=== PATIENT | female | born 1960 | race Hispanic/Latino ===

== ENCOUNTER 2017-09-24 06:50 | Day surgery (SDC) | payer MEDICARE ==
[2014-11-01 09:47] VITALS: BMI 30.1
[2017-09-24] MEDS ORDERED: Propofol 10 mg/ml Inj (20 ML) ONE ×2 (08:07→08:41)
[2017-09-24] MEDS ORDERED: Midazolam 2 MG/2 ML VIAL ONE (08:18)
[2017-09-24] MEDS ORDERED: Sodium Chloride 0.9% 1,000 ML IV SCH (09:15)
[2017-09-24 12:50] VITALS: BP 121/73; PULSE 70; RESP 15; TEMP 97; O2SAT 97
== END 2017-09-24 11:30 | disposition home or self-care (01) ==
LOC: ENDO 06:50
PROVIDERS: ATTEND Internal Medicine Gastroenterology
DX: Z12.11 Encounter for screening for malignant neoplasm of colon (principal); D12.4 Benign neoplasm of descending colon; D12.3 Benign neoplasm of transverse colon; D12.2 Benign neoplasm of ascending colon; D12.5 Benign neoplasm of sigmoid colon; K57.30 Diverticulosis of large intestine without perforation or abscess without bleeding; K64.2 Third degree hemorrhoids; K64.4 Residual hemorrhoidal skin tags; G47.00 Insomnia, unspecified; F41.9 Anxiety disorder, unspecified; G43.909 Migraine, unspecified, not intractable, without status migrainosus; Z85.89 Personal history of malignant neoplasm of other organs and systems; Z80.42 Family history of malignant neoplasm of prostate; Z80.52 Family history of malignant neoplasm of bladder; F17.210 Nicotine dependence, cigarettes, uncomplicated; Z86.010 Personal history of colon polyps
CPT/HCPCS: 45380; 88305; J2001; J2250; J2704; J7030

== ENCOUNTER 2018-03-28 15:02 | Outpatient (CLI) | payer MEDICARE | END 2018-03-28 15:03 | disposition home or self-care (01) | LOC: RAD 15:02 ==

== ENCOUNTER 2018-08-07 09:55 | Emergency (ER) | payer MEDICARE ==
[2018-08-07 09:55] VITALS: BMI 28.8
--- NOTE | 2018-08-07 10:39 | ED PDOC ---
Arrival/HPI - General Historian: Patient - History of Present Illness Narrative History of Present Illness (Text): 08/07/18 10:34 Pt is a 57 yo female with a PMH of right rotator cuff injury, hyperlipidemia, skin cancer scalp/lip who presents to the ED after a mechanical fall. Pt was carrying her grandson on the stair when she slipped and had a mechanical fall. Pt inverted her right ankle at that time. Pt was unable to bear weight on her right ankle at the time and she is unable to in the ED. Pt is unable to take 4 steps. Foot instantly began to swell. Denies hearing a pop/cracking sound, denies LOC, hitting her head, or visual changes. Time/Duration: Prior to Arrival Symptom Onset: Sudden Symptom Course: Unchanged Quality: Stabbing Severity Level: 9 Activities at Onset: Rest Context: Sitting <Jason Gee - Last Filed: 08/07/18 15:01> <Sang Linn - Last Filed: 08/07/18 15:47> - General Chief Complaint: Lower Extremity Problem/Injury Past Medical History - Past History Past History: No Previous - Infectious Disease Hx of Infectious Diseases: None - Tetanus Immunization Tetanus Immunization: Unknown - Reproductive Menopause: No - Cardiac Hx Cardiac Disorders: No Hx Pacemaker: No - Pulmonary Hx Respiratory Disorders: No - Neurological Hx Neurological Disorder: Yes Hx Migraine: Yes Hx Paralysis: No - HEENT Hx HEENT Disorder: No - Renal Hx Renal Disorder: No - Endocrine/Metabolic Hx Endocrine Disorders: No - Hematological/Oncological Hx Blood Disorders: Yes Hx Blood Transfusions: No Hx Blood Transfusion Reaction: No Hx Cancer: Yes (SKIN-MOLES ON HEAD, CHEST AND SHOULDER REMOVED) - Integumentary Hx Dermatological Disorder: Yes Other/Comment: HX:" CANCER OF THE SKIN-MOLES REMOVED FROM HEAD, CHEST AND SHOULDER.' - Musculoskeletal/Rheumatological Hx Musculoskeletal Disorders: Yes Hx Falls: No Other/Comment: HX:RIGHT SHOULDER CUFF TEAR - Gastrointestinal Hx Gastrointestinal Disorders: Yes Hx Hemorrhoids: Yes - Genitourinary/Gynecological Hx Genitourinary Disorders: No - Psychiatric Hx Emotional Abuse: No Hx Physical Abuse: No Hx Substance Use: No - Surgical History Hx Musculoskeletal Surgery: Yes (RIGHT ROTATOR CUFF REPAIR) Other/Comment: HX: "SKIN CANCER-MOLES REMOVED FROM HEAD,SHOULDER, CHEST." - Anesthesia Hx Anesthesia: Yes Hx Anesthesia Reactions: Yes (NAUSEA/VOMITING- PRONE TO MOTION SICKNESS) Hx Malignant Hyperthermia: No - Suicidal Assessment Feels Threatened In Home Enviroment: No <Francine Geene Gurdeep - Last Filed: 08/07/18 15:01> Family/Social History Family/Social History: Hypertension, CAD/[place] Smoking Status: Current Some Days Smoker Hx Alcohol Use: Yes (SOCIAL) Hx Substance Use: No Hx Substance Use Treatment: No <GerardJason Gurdeep - Last Filed: 08/07/18 15:01> Allergies/Home Meds <GerardJason Gurdeep - Last Filed: 08/07/18 15:01> <Sang Linn - Last Filed: 08/07/18 15:47> Allergies/Adverse Reactions: Allergies No Known Allergies Allergy (Verified 09/21/17 10:58) Home Medications: Home Meds Medication Instructions Recorded Confirmed Gabapentin [Neurontin] 300 mg PO TID 06/09/17 11/26/17 Diazepam [Valium] 10 mg PO PRN PRN 09/21/17 08/07/18 Zolpidem Tartrate [Ambien] 10 mg PO HS PRN 09/21/17 08/07/18 Calcium Citrate/Vitamin D2 1 08/07/18 [Titus-Citrate Plus Vitamin D Tab] Review of Systems - Review of Systems Constitutional: Normal Eyes: Normal ENT: Normal Respiratory: Normal Cardiovascular: Normal Gastrointestinal: Normal Genitourinary Female: Normal Musculoskeletal: Joint Swelling, Other (right ankle pain, left arm pain) Skin: Normal Neurological: Normal Endocrine: Normal Hemo/Lymphatic: Normal Psychiatric: Normal <Francine Geene Gurdeep - Last Filed: 08/07/18 15:01> Physical Exam Vital Signs Reviewed: Yes Vital Signs Temp Pulse Resp BP Pulse Ox 08/07/18 10:21 97.8 F 69 18 123/82 99 Temperature: Afebrile Blood Pressure: Normal Pulse: Regular Respiratory Rate: Normal Appearance: Positive for: Well-Appearing Mental Status: Positive for: Alert and Oriented X 3 - Systems Exam Head: Present: Atraumatic, Normocephalic Pupils: Present: PERRL Extroacular Muscles: Present: EOMI Mouth: Present: Moist Mucous Membranes Neck: Present: Normal Range of Motion Respiratory/Chest: Present: Clear to Auscultation, Good Air Exchange. No: Respiratory Distress, Accessory Muscle Use Cardiovascular: Present: Regular Rate and Rhythm, Normal S1, S2 Abdomen: Present: Normal Bowel Sounds. No: Tenderness, Distention Upper Extremity: Present: Normal Inspection Lower Extremity: Present: Tenderness, Swelling, Deformity, Neurovascularly Intact. No: CALF TENDERNESS, Normal ROM Neurological: Present: GCS=15, CN II-XII Intact Skin: Present: Warm, Dry, Normal Color Psychiatric: Present: Alert, Oriented x 3 <Jason Gee - Last Filed: 08/07/18 15:01> Vital Signs Temp Pulse Resp BP Pulse Ox 08/07/18 12:55 98 F 86 19 142/79 98 08/07/18 11:53 98 F 79 18 150/87 98 08/07/18 10:21 97.8 F 69 18 123/82 99 08/07/18 09:55 98.3 F 79 18 121/86 99 <Sang Linn - Last Filed: 08/07/18 15:47> Medical Decision Making ED Course and Treatment: 08/07/18 10:41 toradol for pain right ankle xrays right foot xrays left humerus xrays 08/07/18 12:14 Ankle xrays show comminuted calcaneal fracture with possible extension to calcaneal cuboid articulation. Questionable nondisplaced lateral intra-articular cuboid fracture Questionable nondisplaced greater tuberosity and coronoid process fractures. Dedicated shoulder and elbow radiographs are recommended for further eval 08/07/18 14:07 Left elbow xray no acute fracture, no joint effusion Shoulder xray no demonstrated fracture or dislocation, Degenerative changes Right ankle CT severely comminuted calcaneal fracture Podiatry resident- posterior splint of calcaneous pt to follow up on 08/[address] Donahue and schedule surgery at that time follow up with ortho for shoulder CT elbow and shoulder EKG HR66, NSR, no signs of ST or T wave abnormalities Pt seen, examined, assessment and plan discussed with Dr Temitope Gee PGY1 - RAD Interpretation Radiology Orders: 08/07/18 10:32 ANKLE RIGHT 3 VIEWS ROUTINE [RAD] Stat FOOT RIGHT 3 VIEWS ROUTINE [RAD] Stat 08/07/18 10:33 HUMERUS LEFT [RAD] Stat - Medication Orders Current Medication Orders: Discontinued Medications Ketorolac Tromethamine (Toradol) 30 mg IVP STAT STA Stop: 05/26/19 10:32 <GerardJason Gurdeep - Last Filed: 08/07/18 15:01> ED Course and Treatment: 08/07/18 15:20 Patient Seen with Resident: In agreement with resident note which contains more details about the patient. Patient seen and evaluated with resident. Came up with plan and treatment together. 57 y/o F p/w R ankle pain and L shoulder pain. On exam, R ankle swelling and tenderness with good pulse and movement of digits intact. The patient required opioid analgesia and was counseled on side effects, potential risk of addiction, recommendation to minimize use, and available alternatives to opiates. - Lab Interpretations Lab Results: PT 10.6 SECONDS (9.4-12.5) 08/07/18 14:10 INR 0.95 08/07/18 14:10 APTT 32.2 Seconds (26.9-38.3) 08/07/18 14:10 Total Bilirubin 0.4 mg/dL (0.2-1.3) 08/07/18 14:10 AST 43 U/L (14-36) H 08/07/18 14:10 ALT 37 U/L (7-56) 08/07/18 14:10 Alkaline Phosphatase 60 U/L (38-126) 08/07/18 14:10 Total Protein 6.9 g/dL (5.8-8.3) 08/07/18 14:10 Albumin 4.1 g/dL (3.0-4.8) 08/07/18 14:10 Globulin 2.8 gm/dL 08/07/18 14:10 Albumin/Globulin Ratio 1.5 (1.1-1.8) 08/07/18 14:10 - RAD Interpretation Radiology Orders: 08/07/18 10:32 ANKLE RIGHT 3 VIEWS ROUTINE [RAD] Stat FOOT RIGHT 3 VIEWS ROUTINE [RAD] Stat 08/07/18 10:33 HUMERUS LEFT [RAD] Stat 08/07/18 11:37 ELBOW LEFT 3 VIEWS ROUTINE [RAD] Stat SHOULDER LEFT [RAD] Stat 08/07/18 12:23 EXT LOWER W/O CONTRAST RIGHT [CT] Stat 08/07/18 14:34 EXT UPPER W/O CONTRAST LEFT [CT] Stat - Medication Orders Current Medication Orders: Discontinued Medications Ketorolac Tromethamine (Toradol) 30 mg IVP STAT STA Stop: 08/07/18 10:32 Last Admin: 08/07/18 10:55 Dose: 30 mg MAY Pain Assessment Document 08/07/18 10:55 GMI (Rec: 08/07/18 10:56 GMI [id number]) Pain Reassessment Is this a pain reassessment? Yes Sleep Is patient sleeping during reassessment? No Presence of Pain Presence of Pain Yes Pain Scale Used Protocol: [facility] Scale Used Numeric Location Left, Right or Bilateral Right Pain Location Body Site Ankle Description Description Constant Intensity of Pain at present 9 IVP Administration Document 08/07/18 10:55 GMI (Rec: 08/07/18 10:56 GMI [id number]) Charges for Administration # of IVP Administrations 1 Re-Assess: [facility] Pain Assessment Document 08/07/18 11:55 GMI (Rec: 08/07/18 12:05 GMI [id number]) Pain Reassessment Is this a pain reassessment? Yes Sleep Is patient sleeping during reassessment? No Presence of Pain Presence of Pain Yes Pain Scale Used Protocol: [facility] Pain Scale Used Numeric Location Left, Right or Bilateral Right Pain Location Body Site Foot Description Description Sharp Intensity of Pain at present 9 Morphine Sulfate (Morphine) 4 mg IVP STAT STA Stop: 08/07/18 11:54 Last Admin: 08/07/18 12:06 Dose: 4 mg [facility] Pain Assessment Document 08/07/18 12:06 GMI (Rec: 08/07/18 12:08 GMI [id number]) Pain Reassessment Is this a pain reassessment? Yes Sleep Is patient sleeping during reassessment? No Presence of Pain Presence of Pain Yes Pain Scale Used Protocol: [facility] Pain Scale Used Numeric Location Left, Right or Bilateral Right Pain Location Body Site Ankle Foot Description Description Sharp Intensity of Pain at present 9 Pain Behavior Facial Grimacing Alleviating Factors/Management Distraction Techniques Alleviating Factors Medication IVP Administration Document 08/07/18 12:06 GMI (Rec: 08/07/18 12:08 GMI [id number]) Charges for Administration # of IVP Administrations 1 Re-Assess: [facility] Pain Assessment Document 08/07/18 13:06 GMI (Rec: 08/07/18 13:53 GMI [id number]) Pain Reassessment Is this a pain reassessment? Yes Sleep Is patient sleeping during reassessment? No Presence of Pain Presence of Pain Yes Morphine Sulfate (Morphine) 4 mg IVP STAT STA Stop: 08/07/18 13:51 Last Admin: 08/07/18 14:03 Dose: 4 mg MAR Pain Assessment Document 08/07/18 14:03 GMI (Rec: 08/07/18 14:03 GMI [id number]) Pain Reassessment Is this a pain reassessment? Yes Sleep Is patient sleeping during reassessment? No Presence of Pain Presence of Pain Yes Pain Scale Used Protocol: PSCALES Pain Scale Used Numeric Location Left, Right or Bilateral Right Pain Location Body Site Ankle Foot Description Description Constant Intensity of Pain at present 8 Pain Behavior Facial Grimacing Alleviating Factors/Management Relaxation Techniques Techniques Alleviating Factors Distraction IVP Administration Document 08/07/18 14:03 GMI (Rec: 08/07/18 14:03 GMI [id number]) Charges for Administration # of IVP Administrations 1 Ondansetron HCl (Zofran Inj) 4 mg IVP STAT STA Stop: 08/07/18 12:10 Last Admin: 08/07/18 12:27 Dose: 4 mg IVP Administration Document 08/07/18 12:27 GMI (Rec: 08/07/18 12:27 GMI [id number]) Charges for Administration # of IVP Administrations 1 <Sang Linn - Last Filed: 08/07/18 15:47> - PA / SPIKE MACHINE OPERATOR / Resident Statement MD/DO has reviewed & agrees with the documentation as recorded. - Scribe Statement The provider has reviewed the documentation as recorded by the Scribe Dawna Taylor All medical record entries made by the Scribe were at my direction and personally dictated by me. I have reviewed the chart and agree that the record accurately reflects my personal performance of the history, physical exam, medical decision making, and the department course for this patient. I have also personally directed, reviewed, and agree with the discharge instructions and disposition. <Sang Linn - Last Filed: 08/07/18 15:47> Disposition/Present on Arrival - Present on Arrival History of DVT/PE: No History of Uncontrolled Diabetes: No Urinary Catheter: No History of Decub. Ulcer: No History Surgical Site Infection Following: None <Jason Gee - Last Filed: 08/07/18 15:01> - Present on Arrival Any Indicators Present on Arrival: No - Disposition Have Diagnosis and Disposition been Completed?: Yes Disposition Time: 11:34 Patient Plan: Discharge <Sang Linn - Last Filed: 08/07/18 15:47> - Disposition Diagnosis: Calcaneal fracture Disposition: HOME/ ROUTINE Patient Problems: Current Active Problems Problem Status Onset Calcaneal fracture Acute Condition: STABLE Discharge Instructions (ExitCare): Heel Fracture (DC) Prescriptions: oxyCODONE/Acetaminophen [Percocet 5/325 mg Tab] 1 tab PO Q6 #20 tab Referrals: eHnok Donahue MD [[facility]] - Follow up with primary Forms: [employer] ([place]an)
--- NOTE | 2018-08-07 11:38 | RAD ---
Date of service: 08/07/2018 PROCEDURE: Right Ankle Radiographs. Right Foot Radiographs. HISTORY: ankle pain COMPARISON: None available. TECHNIQUE: 3 views obtained of the right ankle; three views obtained of the right foot. FINDINGS: BONES: Comminuted calcaneal fracture, possible extension to the calcaneocuboid articulation. Questionable nondisplaced lateral intra-articular cuboid fracture. JOINTS: Ankle mortise maintained. Talar dome intact SOFT TISSUES: Bimalleolar soft tissue swelling. Small ankle joint effusion. Infiltration of Kager's fat pad. OTHER FINDINGS: None. IMPRESSION: Comminuted calcaneal fracture with possible extension to calcaneal cuboid articulation. Questionable nondisplaced lateral intra-articular cuboid fracture.
--- NOTE | 2018-08-07 11:39 | RAD ---
PROCEDURE: Radiographs of the left humerus. HISTORY: arm pain COMPARISON: None. TECHNIQUE: 2 views obtained. FINDINGS: BONES: Questionable nondisplaced greater tuberosity fracture. Questionable coronoid process fracture. SOFT TISSUES: Normal. OTHER FINDINGS: None. IMPRESSION: Questionable nondisplaced greater tuberosity and coronoid process fractures. Dedicated shoulder and elbow radiographs are recommended for further evaluation.
[2018-08-07] MEDS ORDERED: Morphine 4 mg/ml ISec IVP STA ×2 (11:53→13:50)
[2018-08-07 11:56] VITALS: TEMP 98
[2018-08-07 12:56] VITALS: RESP 19
--- NOTE | 2018-08-07 13:45 | CT ---
Date of service: 08/07/2018 PROCEDURE: CT of the right ankle. HISTORY: fall, injury to right ankle COMPARISON: Right ankle and foot radiographs performed earlier the same day. TECHNIQUE: Contiguous axial images of the right ankle were obtained. Coronal and sagittal reformats were generated. Radiation dose: Total exam DLP = 306.29 mGy-cm. This CT exam was performed using one or more of the following dose reduction techniques: Automated exposure control, adjustment of the mA and/or kV according to patient size, and/or use of iterative reconstruction technique. FINDINGS: BONES: Severely comminuted calcaneal fracture with depression of the subtalar calcaneus fracture planes extending to multiple portion of the talocalcaneal articulation as well as to the calcaneal cuboid articulation no cuboid fracture is identified.. SOFT TISSUES: Extensive soft tissue swelling/edema with ankle joint effusion IMPRESSION: Severely comminuted calcaneal fracture.
--- NOTE | 2018-08-07 13:56 | RAD ---
Date of service: 08/07/2018 PROCEDURE: Radiographs of the Left Shoulder HISTORY: fall COMPARISON: No prior. TECHNIQUE: 3 views obtained. FINDINGS: BONES: No acute fracture. JOINTS: Glenohumeral and acromioclavicular joint degenerative changes. SOFT TISSUES: Normal. OTHER FINDINGS: None. IMPRESSION: No demonstrated fracture or dislocation. Degenerative changes..
--- NOTE | 2018-08-07 13:56 | RAD ---
Date of service: 08/07/2018 PROCEDURE: Radiographs of the left elbow. HISTORY: fall COMPARISON: No prior. TECHNIQUE: 3 views obtained. FINDINGS: BONES: No acute fracture. Osteophyte at the coronoid process. JOINTS: Degenerative changes. SOFT TISSUES: Normal. JOINT EFFUSION: None. OTHER FINDINGS: None IMPRESSION: Demonstrated fracture or dislocation.
[2018-08-07 14:26] LABS: BASO # 0.02 K/mm3 (0.0-2.0); BASO % 0.2 % (0.0-3.0); EOS # 0.1 (0.0-0.7); EOS % 0.6 % (1.5-5.0); HEMOGLOBIN 12.3 g/dL (12.0-16.0); LYMPH # 2.1 (1.2-3.4); LYMPH % 16.7 % (22.0-35.0); MEAN CELL VOLUME 86.8 fl (80.0-105.0); MEAN CORPUSCULAR HGB CONC 32.2 g/dl (31.0-37.0); MONO # 1.1 (0.1-0.6); PLATELET COUNT 200 10^3/uL (120.0-450.0); RED CELL DISTRIBUTION WIDTH 16.1 % (11.5-14.5); WHITE BLOOD COUNT 12.5 10^3/uL (4.5-11.0)
[2018-08-07 14:32] LABS: ALB/GLOB RATIO 1.5 (1.1-1.8); ALBUMIN 4.1 g/dL (3.0-4.8); ALT/SGPT 37 U/L (7-56); AST/SGOT 43 U/L (14-36); BLOOD UREA NITROGEN 17 mg/dL (7-21); CALCIUM 9.6 mg/dL (8.4-10.5); GFR NON-AFRICAN AMERICAN > 60
[2018-08-07 14:33] LABS: INR 0.95; PARTIAL THROMBOPLASTIN TIME 32.2 Seconds (26.9-38.3); PROTHROMBIN TIME 10.6 SECONDS (9.4-12.5)
--- NOTE | 2018-08-07 15:28 | CP.PCM.CON ---
History of Present Illness - History of Present Illness History of Present Illness: Orthopedic Consult: Dr. Motta/Godfrey 57F patient with PMHx of HLD and skin cancer seen and examined in the ED secondary to mechanical fall down 5 steps. Patient states that she fell and hit her left shoulder, left elbow, and right foot. She denies any head trauma. She states that she was immediately unable to weightbear to the R lower extremity. She is able to use her left arm at this time without difficult however states that it feels "sore". She is accompanied by her daughter at today's visit. Denies nausea/vomiting/fever/shortness of breath/chills. PMHx: HLD, skin cancer PSHx: R rotator cuff ALL: Denies Review of Systems - Constitutional Constitutional: As Per HPI Past Patient History - Infectious Disease Hx of Infectious Diseases: None - Tetanus Immunizations Tetanus Immunization: Unknown - Past Medical History & Family History Past Medical History?: Yes - Past Social History Smoking Status: Current Some Days Smoker - CARDIAC Hx Cardiac Disorders: No Hx Pacemaker: No - PULMONARY Hx Respiratory Disorders: No - NEUROLOGICAL Hx Neurological Disorder: Yes Hx Migraine: Yes Hx Paralysis: No - HEENT Hx HEENT Problems: No - RENAL Hx Chronic Kidney Disease: No - ENDOCRINE/METABOLIC Hx Endocrine Disorders: No - HEMATOLOGICAL/ONCOLOGICAL Hx Blood Disorders: Yes Hx Blood Transfusions: No Hx Blood Transfusion Reaction: No Hx Cancer: Yes (SKIN-MOLES ON HEAD, CHEST AND SHOULDER REMOVED) - INTEGUMENTARY Hx Dermatological Problems: Yes Other/Comment: HX:" CANCER OF THE SKIN-MOLES REMOVED FROM HEAD, CHEST AND SHOULDER.' - MUSCULOSKELETAL/RHEUMATOLOGICAL Hx Musculoskeletal Disorders: Yes Hx Falls: No Other/Comment: HX:RIGHT SHOULDER CUFF TEAR - GASTROINTESTINAL Hx Gastrointestinal Disorders: Yes Hx Hemorrhoids: Yes - GENITOURINARY/GYNECOLOGICAL Hx Genitourinary Disorders: No - PSYCHIATRIC Hx Emotional Abuse: No Hx Physical Abuse: No Hx Substance Use: No - SURGICAL HISTORY Hx Musculoskeletal Surgery: Yes (RIGHT ROTATOR CUFF REPAIR) Other/Comment: HX: "SKIN CANCER-MOLES REMOVED FROM HEAD,SHOULDER, CHEST." - ANESTHESIA Hx Anesthesia: Yes Hx Anesthesia Reactions: Yes (NAUSEA/VOMITING- PRONE TO MOTION SICKNESS) Hx Malignant Hyperthermia: No Meds Home Medications: Home Medication List Medication Instructions Recorded Confirmed Type oxyCODONE/Acetaminophen [Percocet 1 tab PO Q6 #20 tab 08/07/18 Rx 5/325 mg Tab] Allergies/Adverse Reactions: Allergies Allergy/AdvReac Type Severity Reaction Status Date / Time No Known Allergies Allergy Verified 09/21/17 10:58 Physical Exam - Constitutional Appears: Well, Non-toxic, No Acute Distress - Head Exam Head Exam: ATRAUMATIC, NORMOCEPHALIC - Eye Exam Eye Exam: Normal appearance - Extremities Exam Additional comments: Lower extremity: Vascular: DP/PT palpable, CFT < 3 seconds, TG warm to warm, + 2 edema a ppreciated to the R foot globally at this time Ortho: Pain with palpation of right heel, unable to assess MMT at this time secondary to guarding, pain with AROM and PROM Neuro: Gross and protective sensation intact Derm: No open lesions, ecchymosis appreciated to the right ankle and heel at this time, erythema appreciated, no active infection Left Upper extremity: Mild edema, Abduction/Adduction of shoulder WNL, patient able to move digits, CFT WNL - Neurological Exam Neurological exam: Alert, Oriented x3 - Psychiatric Exam Psychiatric exam: Normal Affect, Normal Mood Results - Vital Signs Recent Vital Signs: Last Vital Signs Temp 98 F 08/07/18 12:55 Pulse 86 08/07/18 12:55 Resp 19 08/07/18 12:55 BP 142/79 08/07/18 12:55 Pulse Ox 98 08/07/18 12:55 - Labs Result Diagrams: 08/07/18 14:10 08/07/18 14:10 Labs: Laboratory Results - last 24 hr 08/07/18 08/07/18 08/07/18 14:10 14:10 14:10 WBC 12.5 H RBC 4.40 Hgb 12.3 Hct 38.2 MCV 86.8 MCH 28.0 MCHC 32.2 RDW 16.1 H Plt Count 200 Neut % (Auto) 73.5 H Lymph % (Auto) 16.7 L [place] % (Auto) 9.0 H Eos % (Auto) 0.6 L Baso % (Auto) 0.2 Lymph # (Auto) 2.1 [place] # (Auto) 1.1 H Eos # (Auto) 0.1 Baso # (Auto) 0.02 Absolute Neuts (auto) 9.20 H PT 10.6 INR 0.95 APTT 32.2 Sodium 140 Potassium 4.0 Chloride 107 Carbon Dioxide 24 Anion Gap 13 BUN 17 Creatinine 0.6 L Est GFR ( Amer) > 60 Est GFR (Non-Af Amer) > 60 Random Glucose 92 Calcium 9.6 Total Bilirubin 0.4 AST 43 H ALT 37 Alkaline Phosphatase 60 Total Protein 6.9 Albumin 4.1 Globulin 2.8 Albumin/Globulin Ratio 1.5 Blood Type Antibody Screen Crossmatch BBK History Checked 08/07/18 14:10 WBC RBC Hgb Hct MCV MCH MCHC RDW Plt Count Neut % (Auto) Lymph % (Auto) [place] % (Auto) Eos % (Auto) Baso % (Auto) Lymph # (Auto) [place] # (Auto) Eos # (Auto) Baso # (Auto) Absolute Neuts (auto) PT INR APTT Sodium Potassium Chloride Carbon Dioxide Anion Gap BUN Creatinine Est GFR ( Amer) Est GFR (Non-Af Amer) Random Glucose Calcium Total Bilirubin AST ALT Alkaline Phosphatase Total Protein Albumin Globulin Albumin/Globulin Ratio Blood Type A POSITIVE Antibody Screen Negative Crossmatch See Detail BBK History Checked No verified bt Assessment & Plan - Assessment and Plan (Free Text) Assessment: 57F patient with right calcaneal fracture Plan: Patient seen and examined Discussed patient in detail with Dr. Motta/Godfrey Foot x-ray: comminuted calcaneal fracture with possible extension into calcaneal cuboid joint Lower extremity CT: severely comminuted calcaneal fracture Upper extremity CT: No fractures, soft tissue unremarkable L shoulder x-ray: no fracture or dislocation L elbow x-ray: no demonstrated fracture or dislocation Patient placed in posterior splint to the right lower extremity Instructed to remain strict NWB to the R lower extremity with the use of crutches Patient educated importance on RICE protocol Posterior splint to be left clean/dry/intact Pain control Patient to follow up in office with Dr. Donahue on Wednesday for surgical jeff nning Thank you for the consult - Date & Time Date: 08/07/18 Time: 15:32
--- NOTE | 2018-08-07 15:47 | CT ---
Date of service: 08/07/2018 PROCEDURE: CT of the Left upper extremity HISTORY: focus on elbow and shoulder COMPARISON: None available. TECHNIQUE: Contiguous axial images of the left upper extremity were obtained. Coronal and sagittal reformats were generated. Radiation dose: Total exam DLP = 785.47 mGy-cm. This CT exam was performed using one or more of the following dose reduction techniques: Automated exposure control, adjustment of the mA and/or kV according to patient size, and/or use of iterative reconstruction technique. FINDINGS: BONES: No acute fracture. SOFT TISSUES: Unremarkable. IMPRESSION: No fracture.
[2018-08-07 16:17] VITALS: BP 132/86; PULSE 87; O2SAT 100
--- NOTE | 2018-08-08 11:27 | CARD ---
APPROVED REPORT Date of service: 08/07/2018 EKG Measurement Heart [id number] <Conclusion> Normal sinus rhythm with sinus arrhythmia Normal ECG
== END 2018-08-07 16:15 | disposition home or self-care (01) ==
LOC: ED 09:55
DX: S92.001A Unspecified fracture of right calcaneus, initial encounter for closed fracture (principal); W10.9XXA Fall (on) (from) unspecified stairs and steps, initial encounter; E78.5 Hyperlipidemia, unspecified; Z85.828 Personal history of other malignant neoplasm of skin
CPT/HCPCS: 29515; 73030; 73060; 73080; 73200; 73610; 73630; 73700; 80053; 85025; 85610; 85730; 86850; 86900; 93005; 96374; 96375; 96376; 99284; J1885; J2270; J2405